=== PATIENT | male | born 1975 | race Caucasian/White ===

== ENCOUNTER 2019-11-04 23:58 | Emergency (ER) | payer OTHER ==
[~2019-11-04] VITALS: Ht 165.1 cm; Wt 89.0 kg
[2019-11-05 00:10] VITALS: BP 144/88
[2019-11-05] MEDS ORDERED: LIDOCAINE-MPF 1%, 5ML ONE (00:26)
[2019-11-05] MEDS ORDERED: LIDOCAINE-MPF 1%, 5ML INFIL ONE (00:30)
[2019-11-05] MEDS ORDERED: DIPH,PERTUSS(ACELL),TET VAC/PF 0.5 ML IM-VACC ONE (00:30)
[2019-11-05] MEDS ORDERED: NEOSPORIN OINT. PKT 1 PACKET ONE (01:04)
--- NOTE | 2019-11-05 01:41 | NUR ---
cleaned wound lac site with 1 liter of saline then demetrice sutured applied dressing with neomycin applied given dc instructrion pt completed works com document pt up ambulated to check out
== END 2019-11-05 01:45 | disposition home or self-care (01) ==
LOC: ED 11-05 00:53
DX: S61.511A Laceration without foreign body of right wrist, initial encounter (principal); W26.0XXA Contact with knife, initial encounter; Y93.89 Activity, other specified; Y92.69 Other specified industrial and construction area as the place of occurrence of the external cause; Y99.8 Other external cause status
CPT/HCPCS: 12041; 99284